=== PATIENT | female | born 1990 | race Two or more races ===

== ENCOUNTER 2024-09-21 09:21 | Emergency (ER) | payer MEDICAID ==
[~2024-09-21] VITALS: Ht 167.6 cm; Wt 66.0 kg
[~2024-09-21 09:21] MED LIST: BUPR-581 PO; DICY10CA PO; NICO2GUM PO; PANT40T PO; SERT-160 PO; SUCR1TAB PO
--- NOTE | 2024-09-21 09:41 | ED.PDOC ---
History of Present Illness HPI Comments This is a 34-year-old female with past medical history of bronchial asthma, CVA presented to the ED via EMS with a chief complaint of left-sided chest pain, coughing with whitish sputum and shortness of breath for last 1 week prior to this visit. According to the EMS the patient was complaining of shortness of the breath but saturation was 98% on room air and they found on auscultation of the lung bilateral lower lobe ronchi and on route to hospital given 1 breathing treatment that improved the breathing. Patient mentioned that she went to [facility] yesterday and diagnosed her for bronchitis and sent home. She complaint of left-sided pleuritic chest pain, which is sharp in nature, 6/10, localized, aggravated with deep breathing, coughing without any relieving factors. She denies fever, chills, nausea, vomiting, abdominal pain, dysuria, hematuria or any changes in bowel habit. Chief Complaint: Cough Time Seen by MD: 09:26 Primary Care Provider: DENIES Allergies: Coded Allergies: NO KNOWN ALLERGIES (Unverified , 05/12/24) Home Meds Active Scripts Sucralfate (Sucralfate) 1 Gm Tab, 1 GM PO BID for 15 Days, #30 TAB Prov:TORI BRIDGES RESIDENT 05/17/24 Pantoprazole Sodium Sesquihydr (Pantoprazole Sodium) 40 Mg Tab, 40 MG PO DAILY for 21 Days, #21 TAB Prov:TORI BRIDGES RESIDENT 05/17/24 Dicyclomine Hcl (BENTYL CAPSULE) 10 Mg Cp, 1 CAP PO TID for 30 Days, #90 CAP 11 Refills Prov:TORI BRIDGES RESIDENT 05/17/24 Reported Medications Bupropion Hcl (Bupropion Hcl Xl) 300 Mg Tab, 1 TAB PO DAILY 05/13/24 Nicotine Polacrilex (Nicotine Polacrilex) 2 Mg Gum, 1 PO Q8HPRN 05/12/24 Sertraline Hcl (Sertraline Hcl) 100 Mg Tab, 1 TAB PO BID 05/12/24 Information Source: Patient, Emergency Med Personnel Mode of Arrival: EMS Severity: Moderate Timing: Days Duration: Since onset Prehospital treatment: Breathing Tx Past Medical History PAST MEDICAL HISTORY: Asthma, CVA Surgical History: BTL, 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 Family History Family History: Family hx of DM Family History (Other): Elevated cholesterol Social History Smoker: Non-Smoker Alcohol: Denies ETOH Use Drugs: Denies Drug Use Lives In: Home Constitutional: denies: chills, diaphoresis, fatigue, fever, malaise, sweats, weakness, others EENTM: denies: blurred vision, double vision, ear bleeding, ear discharge, ear drainage, ear pain, ear ringing, eye pain, eye redness, hearing loss, mouth pain, mouth swelling, nasal discharge, nose bleeding, nose congestion, nose pain, photophobia, tearing, throat pain, throat swelling, voice changes, others Respiratory: reports: cough, shortness of breath; denies: hemoptysis, orthopnea, SOB at rest, SOB with excertion, stridor, wheezing, others Cardiovascular: reports: chest pain; denies: dizzy spells, diaphoresis, Dyspnea on exertion, edema, irregular heart beat, left arm pain, lightheadedness, palpitations, PND, syncope, others Gastrointestinal: denies: abdomen distended, abdominal pain, blood streaked bowels, constipated, diarrhea, dysphagia, difficulty swallowing, hematemesis, melena, nausea, poor appetite, poor fluid intake, rectal bleeding, rectal pain, vomiting, others Genitourinary: denies: abnormal vagina bleeding, burning, dyspareunia, dysuria, flank pain, frequency, hematuria, incontinence, pain, , vagina discharge, urgency, others Neurological: denies: dizziness, fainting, headache, left sided numbness, left sided weakness, numbness, paresthesia, pre-existing deficit, right sided numbness, right sided weakness, seizure, speech problems, tingling, tremors, weakness, others Musculoskeletal: denies: back pain, gout, joint pain, joint swelling, muscle pain, muscle stiffness, neck pain, others Integumetry: denies: bruises, change in color, change in hair/nails, dryness, laceration, lesions, lumps, rash, wounds, others Allergic/Immunocompromised: denies: Difficulty Healing, Frequent Infections, Hives, Itching, others Hematologic/Lymphatic: denies: anemia, blood clots, easy bleeding, easy bruising, swollen glands, others Endocrine: denies: excessive hunger, excessive sweating, excessive thirst, excessive urination, flushing, intolerance to cold, intolerance to heat, unexplained weight gain, unexplained weight loss, others Psychiatric: denies: anxiety, bipolar disorder, depression, hopeless, panic disorder, schizophrenia, sleepless, suicidal, others Physical Exam General Appearance: Mild Distress HEENT: Normal ENT Inspection, Pharynx Normal, TMs Normal Neck: Full Range of Motion, Non-Tender, Normal, Normal Inspection Respiratory: No Accessory Muscle Use, Rhonchi Cardiovascular: No Edema, No JVD, No Murmur, No Gallop, Normal Peripheral Pulses, Regular Rate/Rhythm Breast Exam: Deferred Gastrointestinal: No Organomegaly, Non Tender, No Pulsatile Mass, Normal Bowel Sounds, Soft Genitalia: Deferred Pelvic: Deferred Rectal: Deferred Extremities: No calf tenderness, Normal capillary refill, Normal inspection, Normal range of motion, Non-tender, No pedal edema 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 Was a procedure done?: No Differential Dx Considerations may include: Acute exacerbation of bronchial asthma, bronchitis, pneumonitis, influenza X-Ray, Labs, Meds, VS Vital Signs Date Time Temp Pulse Resp B/P (MAP) Pulse Ox O2 Delivery O2 Flow Rate FiO2 09/21/24 12:47 97.7 68 16 148/76 (100) 95 97.7 09/21/24 10:09 98.1 67 16 149/95 (113) 96 98.1 09/21/24 10:09 67 18 96 Room Air 09/21/24 10:09 89 22 95 Room Air* 0 21 09/21/24 10:05 20 94 Room Air* 0 21 09/21/24 09:33 97.2 68 22 132/83 98 97.2 Lab Test 09/21/24 09:58 09/21/24 09:57 09/21/24 09:45 Range/Units Urine Color Light-yellow Yellow Urine Clarity Turbid H Clear Urine pH 5.5 5.0-9.0 Urine Specific [place] 1.018 1.001-1.035 Urine Protein Negative Negative Urine Ketones Negative Negative Urine Blood Negative Negative /uL Urine Nitrite Negative Negative Urine Bilirubin Negative Negative Urine Urobilinogen Normal Negative mg/dL Urine Leukocyte Esterase 2+ Negative /uL Urine RBC <1 0 - 4 /hpf Urine Microscopic WBC 4 0-5 /HPF Urine Squamous Epithelial Cells Few <5 /hpf Urine Bacteria None seen None Seen /hpf Urine Hyaline Casts Few 0 - 2 /lpf Urine Mucus Few None Seen Urine Yeast (Budding) Occasional None Seen /hpf Urine Glucose Normal Normal mg/dL Influenza Type A Antigen Negative Negative Influenza Type B Antigen Negative Negative SARS-CoV-2 Antigen (Rapid) Negative NEGATIVE White Blood Count 6.9 4.4-10.8 10^3/uL Red Blood Count 4.21 4.0-5.20 10^6/uL Hemoglobin 13.6 12.2-16.2 g/dL Hematocrit 40.3 36.0-46.0 % Mean Corpuscular Volume 95.8 80.0-100.0 fL Mean Corpuscular Hemoglobin 32.3 H 28.0-32.0 pg Mean Corpuscular Hemoglobin Concent 33.7 32.0-36.0 g/dL Red Cell Distribution Width 12.2 11.8-14.3 % Platelet Count 170 140-450 10^3/uL Mean Platelet Volume 11.2 H 6.9-10.8 fL Neutrophils (%) (Auto) 60.3 37.0-80.0 % Lymphocytes (%) (Auto) 30.3 10.0-50.0 % Monocytes (%) (Auto) 6.8 0.0-12.0 % Eosinophils (%) (Auto) 2.3 0.0-7.0 % Basophils (%) (Auto) 0.3 0.0-2.0 % Neutrophils # (Auto) 4.1 1.6-8.6 10 ^3/uL Lymphocytes # (Auto) 2.1 0.4-5.4 10 ^3/uL Monocytes # (Auto) 0.5 0-1.3 10 ^3/uL Eosinophils # (Auto) 0.2 0-0.8 10 ^3/uL Basophils # (Auto) 0 0-0.2 10 ^3/uL Nucleated Red Blood Cells 0.2 % D-Dimer, Quantitative 0.58 H 0.0-0.49 mg/L FEU Sodium Level 140 136-145 mmol/L Potassium Level 3.9 3.5-5.1 mmol/L Chloride Level 105 98-107 mmol/L Carbon Dioxide Level 27 20-31 mmol/L Anion Gap 8 5-15 Blood Urea Nitrogen 16 9-23 mg/dL Creatinine 0.79 0.550-1.02 mg/dL Glomerular Filtration Rate Calc 101 >90 mL/min BUN/Creatinine Ratio 20.3 H 10.0-20.0 Serum Glucose 87 74-106 mg/dL Calcium Level 9.4 8.7-10.4 mg/dL Troponin I High Sensitivity < 3 L </=34 ng/L Current Medications Medications (Trade) Dose Ordered Sig/Derian Route Start Time Stop Time Status Last Admin Methylprednisolone Sodium Succinate (Solu Medrol) 125 mg ONCE ONCE IV 09/21/24 09:45 09/21/24 09:46 DC 09/21/24 10:08 Albuterol (Ventolin Medneb) 2.5 mg ONCE ONCE NEB 09/21/24 09:45 09/21/24 09:46 DC 09/21/24 10:14 Ipratropium Richards (Atrovent Medneb) 0.5 mg ONCE ONCE NEB 09/21/24 09:45 09/21/24 09:46 DC 09/21/24 10:13 Ketorolac Tromethamine (Toradol Injection) 30 mg ONCE ONCE IV 09/21/24 10:15 09/21/24 10:16 DC 09/21/24 10:23 Guaifenesin (Robitussin Plain Liquid) 200 mg ONCE ONCE PO 09/21/24 10:30 09/21/24 10:49 DC 09/21/24 10:57 Fluconazole (Diflucan Tablet) 200 mg ONCE ONCE PO 09/21/24 13:00 09/21/24 13:01 DC 09/21/24 13:08 X-Ray, Labs, Meds, VS Comment INDICATION: Shortness of breath TECHNIQUE: Frontal view of the chest. COMPARISON: XY CHEST XRAY 1 VIEW on DOS: 05/16/24 FINDINGS: . The heart and mediastinal contours are grossly unremarkable. There is no evidence of pleural disease. The lungs are clear. The bony structures of the chest are intact without fracture. IMPRESSION: 1. No evidence of acute disease. CTA Chest with intravenous contrast INDICATION: Shortness of breath and chest pain COMPARISON: None TECHNIQUE: Multidetector spiral CTA of the chest was performed of the chest with intravenous contrast. PULMONARY ANGIOGRAPHY PROTOCOL was utilized using a bolus- tracking technique centered on the main pulmonary artery. Axial, coronal and sagittal multiplanar and MIP reformats were performed. CONTRAST: Type of contrast: Omni 350 Contrast injected: 70 ml Radiation dose : Chest: CTDI volume is 18.05 mGy. Dose-length product is 603.64 mGy*cm The dose indicators for CT are the volume computed Tomography (CT) dose Index (CTDIvol) and the dose Length product (DLP), and are measured in units of mGy and mGy-cm, respectively. These indicators are not patient dose, but values generated from the CT scanner acquisition factors. The report includes radiation exposure data for exposures received during this examination. Findings: Pulmonary artery: No pulmonary embolism Lower neck: Normal thyroid. Lungs: Mild patchy ground-glass opacities in both lungs. Atelectasis in the lung bases. Heart/Vascular Structures: Normal heart size. No pericardial effusion. Lymph Nodes: No adenopathy Pleura: No pleural effusion or significant pneumothorax. Musculoskeletal: No acute osseous abnormality. Soft tissues: Normal. Upper abdomen: Limited portions of the upper abdomen are unremarkable. IMPRESSION: 1. No pulmonary embolism. 2. Patchy ground-glass opacities in both lungs could represent subsegmental atelectasis. Clinical correlation and continued follow-up is recommended. Images Reviewed?: Images reviewed and evaluated by me Time of 1ST Reevaluation: 11:00 Reevaluation 1ST: Unchanged Patient Education/Counseling: Diagnosis, Treatment Family Education/Counseling: No Family Present Comments This is a 34-year-old female history of bronchial asthma presented to the ED via EMS for shortness of breath, cough and left-sided pleuritic chest pain. Initial physical examination demonstrated bilateral rhonchi in lower lung zone Patient was given breathing treatment once, IV methylprednisolone 25 mg once During breathing treatment patient was complaining of rt-sided facial pain and numbness Neurological examination including cranial nerves examination 2-12 was normal, no sign of motor and sensory deficit, normal gait. CBC and BMP were unremarkable, COVID and flu are negative D-dimer is 0.58 mildly elevated Troponin I-HS was normal Chest x-ray revealed normal study The patient was given Robitussin for cough The patient did mentioned she is not and her last menstrual period was 09/16/2024 Because of the persistence of symptoms of left-sided pleuritic chest pain and shortness of breath, CT angio chest was ordered and ruled out PE. The patient left AMA SEPSIS Sepsis Screen Date sepsis recognized/suspect: Sep 21, 2024 Time Sepsis recognized/suspect: 927 Recent Procedure: No On Antibiotic Therapy: No Respiratory Rate >20: Yes Heart Rate >90: No Temp<36 C (96.8 F) or >38.3 C: No SBP <90 or MAP <65 mmHG: No New Acute Mental Status Change: No Is the patient on CPAP, BIPAP,: No Physician Orders Chest Portable (09/21/24 09:36) Electrocardigram (09/21/24 09:47) Ct Angio Chest Contrast (09/21/24 11:25) Stat Ekg For Chest Pain (09/21/24 13:48) Vital Signs Date Time Temp Pulse Resp B/P (MAP) Pulse Ox O2 Delivery O2 Flow Rate FiO2 09/21/24 12:47 97.7 68 16 148/76 (100) 95 97.7 09/21/24 10:09 98.1 67 16 149/95 (113) 96 98.1 09/21/24 10:09 67 18 96 Room Air 09/21/24 10:09 89 22 95 Room Air* 0 21 09/21/24 10:05 20 94 Room Air* 0 21 09/21/24 09:33 97.2 68 22 132/83 98 97.2 Laboratory Tests Test 09/21/24 09:45 White Blood Count 6.9 10^3/uL (4.4-10.8) Medications Medications Dose Ordered Sig/Derian Route Start Time Stop Time Status Last Admin Dose Admin Albuterol 2.5 mg ONCE ONCE NEB 09/21/24 09:45 09/21/24 09:46 DC 09/21/24 10:14 Fluconazole 200 mg ONCE ONCE PO 09/21/24 13:00 09/21/24 13:01 DC 09/21/24 13:08 Guaifenesin 200 mg ONCE ONCE PO 09/21/24 10:30 09/21/24 10:49 DC 09/21/24 10:57 Ipratropium Richards 0.5 mg ONCE ONCE NEB 09/21/24 09:45 09/21/24 09:46 DC 09/21/24 10:13 Ketorolac Tromethamine 30 mg ONCE ONCE IV 09/21/24 10:15 09/21/24 10:16 DC 09/21/24 10:23 Methylprednisolone Sodium Succinate 125 mg ONCE ONCE IV 09/21/24 09:45 09/21/24 09:46 DC 09/21/24 10:08 Departure 1 Departure Time of Disposition: 12:52 Impression: Primary Impression: Bronchitis Additional Impression: Yeast UTI Disposition: LEFT AGAINST MEDICAL ADVICE Condition: Other Discharged With: Self Critical Care Note Critical Care Time?: No Stability Stability form required: FARHAT Bueno RESIDENT Sep 21, 2024 09:41 JANIS EDMONDS DO Sep 21, 2024 12:54
[2024-09-21] MEDS: methylPREDNISolone SOD SUCC 125 MG/2 ML VL IV ONE (10:08)
[2024-09-21 10:09] VITALS: PULSE 89; RESP 22; O2SAT 95
--- NOTE | 2024-09-21 10:12 | DVH ---
INDICATION: Shortness of breath TECHNIQUE: Frontal view of the chest. COMPARISON: XY CHEST XRAY 1 VIEW on DOS: 05/16/24 FINDINGS: . The heart and mediastinal contours are grossly unremarkable. There is no evidence of pleural disea se. The lungs are clear. The bony structures of the chest are intact without fracture. IMPRESSION: 1. No evidence of acute disease.
[2024-09-21] MEDS: IPRATROPIUM BROM 0.5 MG/2.5ML INH SOL NEB ONE (10:13)
[2024-09-21] MEDS: ALBUTEROL SULF 2.5 MG/0.5ML(0.5%) NEB SOLN NEB ONE (10:14)
[2024-09-21 10:16] LABS: Hematocrit 40.3 % (36.0-46.0); Hemoglobin 13.6 g/dL (12.2-16.2); Mean Corpuscular Hemoglobin 32.3 pg (28.0-32.0); Mean Corpuscular Volume 95.8 fL (80.0-100.0); Nucleated Red Blood Cells % 0.2 %
[2024-09-21] MEDS: KETOROLAC TROMETH 30 MG/ML 1ML VIAL IV ONE (10:23)
[2024-09-21 10:26] LABS: Chloride 105 mmol/L (98-107); Potassium 3.9 mmol/L (3.5-5.1); Sodium 140 mmol/L (136-145)
[2024-09-21 10:27] LABS: Anion Gap 8 (5-15); Carbon Dioxide 27 mmol/L (20-31)
[2024-09-21 10:28] LABS: Calcium 9.4 mg/dL (8.7-10.4)
[2024-09-21 10:33] LABS: BUN/Creatinine Ratio 20.3 (10.0-20.0); Blood Urea Nitrogen 16 mg/dL (9-23); Glucose 87 mg/dL (74-106)
[2024-09-21 11:00] LABS: COVID19 ANTIGEN SOFIA FIA NEGATIVE (NEGATIVE)
[2024-09-21 11:55] LABS: Urine Budding Yeast OCCASIONAL /hpf (None Seen); Urine Protein, UAD Negative (Negative)
[2024-09-21] MEDS: IOHEXOL 350 MG/ML 100ML IJ ONE (12:07)
--- NOTE | 2024-09-21 12:17 | DVH ---
CTA Chest with intravenous contrast INDICATION: Shortness of breath and chest pain COMPARISON: None TECHNIQUE: Multidetector spiral CTA of the chest was performed of the chest with intravenous contrast . PULMONARY ANGIOGRAPHY PROTOCOL was utilized using a bolus-tracking technique centered on the main p ulmonary artery. Axial, coronal and sagittal multiplanar and MIP reformats were performed. CONTRAST: Type of contrast: Omni 350 Contrast injected: 70 ml Radiation dose : Chest: CTDI volume is 18.05 mGy. Dose-length product is 603.64 mGy*cm The dose indicators for CT are the volume computed Tomography (CT) dose Index (CTDIvol) and the dose Length product (DLP), and are measured in units of mGy and mGy-cm, respectively. These indicators are not patient dose, but values generated from the CT scanner acquisition factors. The report includes radiation exposure data for exposures received during this examination. Findings: Pulmonary artery: No pulmonary embolism Lower neck: Normal thyroid. Lungs: Mild patchy ground-glass opacities in both lungs. Atelectasis in the lung bases. Heart/Vascular Structures: Normal heart size. No pericardial effusion. Lymph Nodes: No adenopathy Pleura: No pleural effusion or significant pneumothorax. Musculoskeletal: No acute osseous abnormality. Soft tissues: Normal. Upper abdomen: Limited portions of the upper abdomen are unremarkable. IMPRESSION: 1. No pulmonary embolism. 2. Patchy ground-glass opacities in both lungs could represent subsegmental atelectasis. Clinical co rrelation and continued follow-up is recommended. HS:Y
[2024-09-21 12:47] VITALS: BP 148/76; PULSE 68; RESP 16; TEMP 97.7; O2SAT 95
[2024-09-21] MEDS: FLUCONAZOLE 100 MG TAB PO ONE (13:08)
== END 2024-09-21 13:58 | disposition left against medical advice (07) ==
LOC: ER 09:21 → EDBD 09:21 → ER 13:58
DX: J40 Bronchitis, not specified as acute or chronic (principal); B37.89 Other sites of candidiasis; Z79.899 Other long term (current) drug therapy; Z98.51 Tubal ligation status; Z86.73 Personal history of transient ischemic attack (TIA), and cerebral infarction without residual deficits; Z20.822 Contact with and (suspected) exposure to COVID-19
CPT/HCPCS: 36415; 71045; 71275; 80048; 81001; 84484; 85025; 85379; 87426; 87804; 94640; 96374; 96375; 99285; J1885; J2919; Q9967